=== PATIENT | male | born 1960 | race Caucasian/White ===

== ENCOUNTER → 2021-02-27 | Day surgery (SDC) | payer MEDICARE, OTHER ==
[~2021-02-27] MED LIST: AMLODIPINE BESY10 MG PO; ASPIRIN EC81 MG PO; ATORVASTATIN CA40 MG PO; CLONAZEPAM1 MG PO; COMFORT EZ MC; COZAAR 50MG TAB50 MG PO; FINASTERIDE5 MG PO; GABAPENTIN600 MG PO; GEMFIBROZIL600 MG PO; HUMALOG100 UNIT/3 SC; LANTUS SOL100 UNIT/1 SQ; LOPRESSOR 50 MG50 MG PO; MULTI-VITAMIN1 EACH PO; TYLENOL325 MG PO; VICTOZA 1818 MG/3 ML SC
== END | disposition home or self-care (01) ==
LOC: OR 06:42
PROVIDERS: Internal Medicine Gastroenterology
PROC: 0DBP8ZX Excision of Rectum, Via Natural or Artificial Opening Endoscopic, Diagnostic (ICD-10-PCS; 2021-02-27)
PROC: 0DB68ZX Excision of Stomach, Via Natural or Artificial Opening Endoscopic, Diagnostic (ICD-10-PCS; principal; 2021-02-27 08:50)
PROC: 0DB78ZX Excision of Stomach, Pylorus, Via Natural or Artificial Opening Endoscopic, Diagnostic (ICD-10-PCS; 2021-02-27 08:50)
DX: Z12.11 Encounter for screening for malignant neoplasm of colon (principal); K31.89 Other diseases of stomach and duodenum; D12.8 Benign neoplasm of rectum; K21.00 Gastro-esophageal reflux disease with esophagitis, without bleeding; K22.10 Ulcer of esophagus without bleeding; K64.1 Second degree hemorrhoids; K57.30 Diverticulosis of large intestine without perforation or abscess without bleeding; I10 Essential (primary) hypertension; J44.9 Chronic obstructive pulmonary disease, unspecified; E11.40 Type 2 diabetes mellitus with diabetic neuropathy, unspecified; E66.01 Morbid (severe) obesity due to excess calories; Z68.41 Body mass index [BMI] 40.0-44.9, adult; Z20.822 Contact with and (suspected) exposure to COVID-19; Z88.8 Allergy status to other drugs, medicaments and biological substances; Z79.82 Long term (current) use of aspirin; Z79.4 Long term (current) use of insulin; Z79.899 Other long term (current) drug therapy
CPT/HCPCS: 82962; J2704